=== PATIENT | female | born 1975 | race Caucasian/White ===

== ENCOUNTER 2016-10-06 16:24 | Emergency (ER) | payer MEDICAID ==
[~2016-10-06] VITALS: Ht 152.4 cm; Wt 93.0 kg
[~2016-10-06 16:24] MED LIST: CARB100S PO; CLIN1CAP6 PO; CYMB60CA PO; PROT40TA PO
[2016-10-06 16:34] VITALS: BP 109/87; PULSE 91; RESP 16; TEMP 98.5; O2SAT 98
[2016-10-06] MEDS ORDERED: LISI-515 PO (16:46)
[2016-10-06] MEDS ORDERED: OXCA150T PO (16:46)
[2016-10-06] MEDS ORDERED: FISHCAP4 PO (16:46)
[2016-10-06] MEDS ORDERED: XANA1TAB2 PO (16:46)
[2016-10-06] MEDS ORDERED: PROT40TA PO (16:46)
[2016-10-06 16:47] VITALS: BP 97/53; PULSE 86; RESP 16; O2SAT 97
[2016-10-06] MEDS ORDERED: SODIUM CHLOR 0.9% 1000 ML INJ 1,000 ML IV SCH (17:42)
[2016-10-06 17:48] VITALS: RESP 16; O2SAT 98
--- NOTE | 2016-10-06 17:51 | PD ---
HPI Chief Complaint: Abnormal Results Time Seen by Provider: 17:33 Travel History International Travel<30 days: No Contact w/Intl Traveler<30days: No Traveled to known affect area: No History of Present Illness HPI 41-year-old female complains of headache, generalized malaise and muscle cramping. Patient has history of hypertension. Patient states that she lost about 15 pounds over the past several weeks through diet. Patient is on lisinopril 20 mg daily for hypertension. Patient took a lisinopril this morning. Patient denies any visual change. Patient denies any chest pain or shortness of breath. Patient denies abdominal pain. Patient denies any nausea vomiting diarrhea. Patient denies any fever chills. Patient was seen at a local clinic this morning and was found to be hypotensive. Systolic blood pressure in the 70s and 80s. Patient was advised to go to the ED for evaluation. PFSH Past Medical History ADD: Yes Bipolar Disorder: Yes Anxiety: Yes Depression: Yes Cancer: No Cardiovascular Problems: Yes High Cholesterol: Yes Diabetes: No Patient Takes Glucophage: No Diminished Hearing: Yes (MILD NATIVE R EAR) Endocrine: No Gastrointestinal Disorders: Yes (CONSTIPATION AND DIARRHEA "FLUCUATE" PER PATIENT) GERD: Yes (GERD) Genitourinary: Yes Immune Disorder: No Implanted Vascular Access Dvce: No Kidney Stones: Yes Musculoskeletal: Yes Neurologic: No Psychiatric: Yes Reproductive: No Respiratory: No Schizophrenia: Yes Seizures: No ?: Not : 9 Para: 3 Miscarriage: 5 : 1 Tubal Ligation: Yes (2012) Past Surgical History Abdominal Surgery: Yes (RECTAL CYSTOCELE) Section: Yes (x1) Gynecologic Surgery: Yes (C SECTION 2011, INTRAVAGINAL SURGERY- REPAIR 19 YEARS AGO.) Other Surgery: Yes (LEFT HAND) Social History Alcohol Use: Yes ("Not usually" Admits to drinking last night (Amaretto, [employer] Coffee)) Tobacco Use: No (Had quit for past year) Substance Use: No Allergies-Medications (Allergen,Severity, Reaction): Coded Allergies: Penicillin (Verified Allergy, Severe, SWELLING, 10/06/16) Aspirin (Verified Adverse Reaction, Severe, N & V, STOMACH CRAMPS, 10/06/16) Reported Meds & Prescriptions Reported Meds & Active Scripts Active Reported Oxcarbazepine 150 Mg Tab 150 Mg PO BID Fish Oil + D3 (Fish Oil-Cholecalciferol) 1,200-1,000 Mg-Unit Cap 1 Cap PO DAILY Xanax (Alprazolam) 1 Mg Tab 1 Mg PO Q8H PRN Lisinopril 20 Mg Tab 20 Mg PO DAILY Protonix (Pantoprazole Sodium) 40 Mg Tab 40 Mg PO BID Review of Systems General / Constitutional: No: Fever Eyes: No: Visual changes HENT: Positive: Headaches, Lightheadedness Cardiovascular: No: Chest Pain or Discomfort Respiratory: No: Shortness of Breath Gastrointestinal: No: Abdominal Pain Genitourinary: No: Dysuria Musculoskeletal: No: Pain Skin: No Rash Neurologic: No: Weakness Psychiatric: No: Depression Endocrine: No: Polydipsia Hematologic/Lymphatic: No: Easy Bruising Physical Exam Narrative GENERAL: Well-nourished, well-developed patient. SKIN: Warm and dry. HEAD: Normocephalic. EYES: No scleral icterus. No injection or drainage. Pupils 3 mm equal reactive. NECK: Supple, trachea midline. No JVD or lymphadenopathy. CARDIOVASCULAR: Regular rate and rhythm without murmurs, gallops, or rubs. RESPIRATORY: Breath sounds equal bilaterally. No accessory muscle use. GASTROINTESTINAL: Abdomen soft, non-tender, nondistended. MUSCULOSKELETAL: No cyanosis, or edema. BACK: Nontender without obvious deformity. No CVA tenderness. Neurologic exam normal. Data Data Last Documented VS Vital Signs Date Time Temp Pulse Resp B/P Pulse Ox O2 Delivery O2 Flow Rate FiO2 10/06/16 17:48 16 98 Room Air 10/06/16 16:47 86 97/53 10/06/16 16:34 98.5 Orders Basic Metabolic Panel (Bmp) (10/06/16 17:42) Complete Blood Count With Diff (10/06/16 17:42) Iv Access Insert/Monitor (10/06/16 17:42) Ecg Monitoring (10/06/16 17:42) Oximetry (10/06/16 17:42) Sodium Chlor 0.9% 1000 Ml Inj (Ns 1000 M (10/06/16 17:42) Labs Laboratory Tests Test 10/06/16 17:50 White Blood Count 11.7 TH/MM3 Red Blood Count 4.94 MIL/MM3 Hemoglobin 14.2 GM/DL Hematocrit 43.2 % Mean Corpuscular Volume 87.5 FL Mean Corpuscular Hemoglobin 28.8 PG Mean Corpuscular Hemoglobin 32.9 % Concent Red Cell Distribution Width 13.5 % Platelet Count 304 TH/MM3 Mean Platelet Volume 9.2 FL Neutrophils (%) (Auto) 62.9 % Lymphocytes (%) (Auto) 24.9 % Monocytes (%) (Auto) 6.6 % Eosinophils (%) (Auto) 1.3 % Basophils (%) (Auto) 4.3 % Neutrophils # (Auto) 7.3 TH/MM3 Lymphocytes # (Auto) 2.9 TH/MM3 Monocytes # (Auto) 0.8 TH/MM3 Eosinophils # (Auto) 0.2 TH/MM3 Basophils # (Auto) 0.5 TH/MM3 CBC Comment DIFF FINAL Differential Comment Sodium Level 140 MEQ/L Potassium Level 4.6 MEQ/L Chloride Level 107 MEQ/L Carbon Dioxide Level 23.9 MEQ/L Anion Gap 9 MEQ/L Blood Urea Nitrogen 13 MG/DL Creatinine 0.89 MG/DL Estimat Glomerular Filtration 69 ML/MIN Rate Random Glucose 100 MG/DL Calcium Level 8.9 MG/DL MDM Medical Decision Making Medical Screen Exam Complete: Yes Emergency Medical Condition: Yes Interpretation(s) 1836 PM. CBC within normal limit. BMP within normal limit. Differential Diagnosis Differential diagnosis including dehydration, electrolyte imbalance, overmedicated. Narrative Course 41-year-old female with headache, lightheadedness and hypotension. History hypertension on lisinopril 20 mg daily. Patient recently lost 15 pounds for the past several weeks. Systolic blood pressure in ED in the 80s and 90s. Normal saline solution 1 L IV bolus. Diagnosis Primary Impression: Hypotension Qualified Code: I95.2 - Hypotension due to drugs Patient Instructions: General Instructions Additional Instructions: No lisinopril tomorrow morning. Start lisinopril 10 mg daily the next day and daily subsequently. Check blood pressure prior to taking lisinopril. Hold lisinopril if blood pressure less than 120/80. Follow-up with personal physician. Return if worse. Med/Other Pt SpecificInfo: Existing Med Changed Disposition: 01 DISCHARGE HOME Condition: Stable Krsih Parr MD Oct 06, 2016 17:51
[2016-10-06 17:56] LABS: AUTOMATED NEUTROPHIL # 7.3 TH/MM3 (1.8-7.7); BASOPHIL # 0.5 TH/MM3 (0-0.2); BASOPHIL % 4.3 % (0.0-2.0); EOSINOPHIL # 0.2 TH/MM3 (0-0.4); EOSINOPHIL % 1.3 % (0.0-4.0); HEMATOCRIT 43.2 % (35.0-46.0); LYMPH % 24.9 % (9.0-44.0); LYMPHOCYTE # 2.9 TH/MM3 (1.0-4.8); MEAN CELL VOLUME 87.5 FL (80.0-100.0); MEAN CORPUSCULAR HEMOGLOBIN 28.8 PG (27.0-34.0); MEAN CORPUSCULAR HGB CONC 32.9 % (32.0-36.0); MONO % 6.6 % (0.0-8.0); NEUT % 62.9 % (16.0-70.0); PLATELET COUNT 304 TH/MM3 (150-450); RED BLOOD COUNT 4.94 MIL/MM3 (4.00-5.30); RED CELL DISTRIBUTION WIDTH 13.5 % (11.6-17.2); WHITE BLOOD COUNT 11.7 TH/MM3 (4.0-11.0)
[2016-10-06 17:59] LABS: HEMO FLAGS DIFF FINAL
[2016-10-06 18:05] LABS: POTASSIUM 4.6 MEQ/L (3.5-5.1)
[2016-10-06 18:08] LABS: BICARBONATE 23.9 MEQ/L (21.0-32.0)
[2016-10-06 18:38] VITALS: BP 85/50; PULSE 76; RESP 16; O2SAT 97
[2016-10-06] MEDS ORDERED: SODIUM CHLOR 0.9% 1000 ML INJ 1,000 ML IV ONE (18:45)
[2016-10-06 19:05] VITALS: BP 100/70; PULSE 81; RESP 18; TEMP 97.4; O2SAT 100
[2016-10-06 20:54] VITALS: BP 103/67; PULSE 63; RESP 18; O2SAT 99
== END 2016-10-06 21:14 | disposition home or self-care (01) ==
LOC: PHED 16:24
DX: I95.2 Hypotension due to drugs (principal); R42 Dizziness and giddiness; R53.81 Other malaise; R25.2 Cramp and spasm; I10 Essential (primary) hypertension; Z79.899 Other long term (current) drug therapy; Z86.79 Personal history of other diseases of the circulatory system; E78.00 Pure hypercholesterolemia, unspecified; Z87.19 Personal history of other diseases of the digestive system; Z87.442 Personal history of urinary calculi; Z87.39 Personal history of other diseases of the musculoskeletal system and connective tissue; Z86.59 Personal history of other mental and behavioral disorders; Z87.891 Personal history of nicotine dependence
CPT/HCPCS: 80048; 85025; 96360; 96361; 99285; J7030